=== PATIENT | male | born 1945 | race Caucasian/White ===

== ENCOUNTER 2025-02-18 00:16 | Inpatient (IN) ==
[2025-02-18] MEDS: ONDANSETRON INJ 2 MG/ML 2 ML VIAL IV STA (01:11)
[2025-02-18] MEDS: ACETAMINOPHEN 1,000 MG/100 ML VIAL IV STA (01:12)
[2025-02-18] MEDS: SODIUM CHLORIDE 0.9% 1,000 ML IV ONE (01:12)
[2025-02-18 01:27] LABS: Hematocrit (blood only) 41.4 % (42.0-52.0); Hemoglobin 13.6 g/dl (14.0-18.0); Immature Granulocytes # (auto) 0.03 K/uL (0.01-0.20); Immature Granulocytes % (auto) 0.3 %; Mean Corpuscular Hemoglobin 29.6 pg (25.0-34.0); Mean Corpuscular Volume 90.2 fL (80.0-100.0); Platelet Count 189 K/uL (130-400); RDW Standard Deviation 44.9 fL (36.4-46.3); Red Blood Count 4.59 M/uL (4.70-6.10); White Blood Count 10.99 K/ul (4.8-10.8)
[2025-02-18 01:41] LABS: Appearance Urine Cloudy (Clear); Glucose Urine UA Negative (Negative)
[2025-02-18 01:45] LABS: Alanine Aminotransferase 32.0 U/L (7-52); Albumin Globulin Ratio 1.3 (0.9-2); Albumin Level 4.2 gm/dl (3.4-5.0); Alkaline Phosphatase 63.0 U/L (34-104); Anion Gap 7.0 (3-11); Bilirubin,Total 0.6 mg/dl (0.2-1.0); Blood Urea Nitrogen 24.0 mg/dl (6-23); Calcium 10.2 mg/dl (8.6-10.3); Carbon Dioxide 30.0 mmol/L (21-32); Chloride 102.0 mmol/L (98-107); Creatinine Clr Calc Pharmacy 62.9 ml/min; Globulin 3.3 gm/dl (2.5-4.0); Glucose 105.0 mg/dl (70-99(Fasting)); Magnesium 2.0 mg/dl (1.7-2.4); Potassium 3.7 mmol/L (3.5-5.1); Sodium 139.0 mmol/L (136-145); Total Protein 7.5 gm/dl (6.0-8.3)
[2025-02-18 01:54] LABS: INR 1.0 (0.9-1.1); Partial Thromboplastin Time 26 Seconds (21-31); Prothrombin Time 10.4 Seconds (9.0-12.0)
--- NOTE | 2025-02-18 02:18 | XRay Report ---
EXAM: XR chest 1V not portable CLINICAL HISTORY: Sepsis TECHNIQUE: An X-ray image of the chest was obtained in the AP projection. COMPARISON: No prior studies are available for comparison. FINDINGS: Pulmonary Parenchyma: Bilateral basal haziness is noted. Otherwise, there is no evidence of consolidation, collapse, or focal opacities present. No pulmonary nodules are identified. There is no evidence of pleural effusion or pleural thickening. Heart and Mediastinum: The cardiothoracic ratio is average. No mediastinal widening or masses are seen. No hilar or mediastinal lymphadenopathy is identified. Bony Thorax: The bony thorax appears intact, without fractures or deformities. Soft Tissues: The soft tissues overlying the chest wall are unremarkable. IMPRESSION: Bilateral basal haziness is present. This is likely due to atelectasis. Infection or an inflammatory process cannot be entirely excluded. Clinical correlation is needed. Electronically signed by Ozzy Wilkerson 02-18-2025 02:18 AM
[2025-02-18] MEDS: cefTRIAXone SODIUM 1,000 MG/50 ML BAG IV STA (02:55)
[2025-02-18] MEDS: SODIUM CHLORIDE 0.9% 500 ML IV SCH (02:55)
[2025-02-18 03:31] LABS: Chlamydia pneumoniae PCR Not Detected (NotDetected); Coronavirus 229E PCR Not Detected (NotDetected); Coronavirus CoV-2 (COVID19)PCR Not Detected (NotDetected); Coronavirus HKU1 PCR Not Detected (NotDetected); Coronavirus NL63 PCR Not Detected (NotDetected); Coronavirus OC43PCR Not Detected (NotDetected); Human Metapneumovirus PCR Not Detected (NotDetected); Parainfluenza Virus 1 PCR Not Detected (NotDetected); Parainfluenza Virus 2 PCR Not Detected (NotDetected); Parainfluenza Virus 3 PCR Not Detected (NotDetected); Parainfluenza Virus 4 PCR Not Detected (NotDetected); Respiratory Syncytial VirusPCR Not Detected (NotDetected); Rhinovirus/Enterovirus PCR Not Detected (NotDetected)
[2025-02-18] MEDS: OPTIRAY 320 100ml IV ONE (03:41)
[2025-02-18] MEDS: AZITHROMYCIN 500 MG/255 ML BAG IV ONE (04:17)
--- NOTE | 2025-02-18 04:18 | CT Scan Report ---
EXAM: CT chest diagnostic w con CLINICAL HISTORY: eval for penumonia TECHNIQUE: Contiguous axial images were obtained from the neck base through the upper abdomen following intravenous administration of contrast material. If IV contrast material had not been administered, the likelihood of detecting abnormalities relevant to the patient's condition would have been substantially decreased. In addition, sagittal and coronal reconstructions were performed. The CT scan was performed according to ALARA (as low as reasonably achievable) principles. COMPARISON: None. FINDINGS: A few atelectatic bands are noted involving the bilateral lung bases. The lungs are clear, with no focal areas of consolidation. No pulmonary nodules are seen. The central airways are patent. There are no pleural effusions. No pneumothorax is seen. No axillary, hilar, or mediastinal adenopathy is identified. The visualized thyroid is unremarkable. The heart, aorta, and pulmonary arteries are of normal size and configuration. No pericardial effusion is identified. Imaged portions of the upper abdomen show cholelithiasis. No aggressive appearing osseous lesions are identified. IMPRESSION: A few atelectatic bands are noted involving the bilateral lung bases. No obvious consolidation is seen. Electronically signed by Gerardo Abdul 02-18-2025 04:18 AM
--- NOTE | 2025-02-18 04:37 | History & Physical Report ---
Date of Service February 18, 2025 Assessment & Plan (1) Sepsis: Plan: Assessment and plan below following discussion of case with ED provider and reviewing patient history/pertinent normal/abnormal diagnostic test results. Sepsis secondary to complicated bronchitis COPD exacerbation secondary to above hypertension, slightly elevated secondary to illness hyperlipidemia,on statin Rx aortic root enlargement/ascending aortic aneurysm, patient follows with [facility] [place] cardiology chronic anemia, hemoglobin at baseline BPH, prostatic nodule status post recent biopsy, patient with painless hematuria ongoing tobacco abuse Admit to med/tele CS, azithromycin course Nebs RTC, steroid course Pulmonology consult if without improvement Nicotine patch as needed DVT prophylaxis. SCDs Re: Hematuria Full code Patient requesting updates providers. Ms. Josiah Harrington, contact #[phone]. Text document was generated using [employer] voice recognition software. It may contain grammatical or spelling errors. Kindly contact undersigned for clarification of any documentation item in question. History of Present Illness Chief Complaint: Fever, chills, cough Primary Care Provider: Guru French MD History obtained from patient, family, and records. Medical history significant for hypertension, hyperlipidemia, aortic root enlargement/ascending aortic aneurysm, COPD, chronic anemia (baseline hemoglobin 12-13), BPH, ongoing tobacco abuse. Patient had outpatient prostate biopsy for rising PSA and prostatic nodule few days ago by [facility] [place] urologist. Painless hematuria postprocedure which he was told to expect as per patient. Postop Cipro course completed. Patient not feeling well yesterday before he and went out for dinner. Junky cough symptoms with increased SOB and wheezing more than usual. No chest pain. Denies aspiration. Not sure about sick contacts. Patient felt sick to his stomach. No actual abdominal pain. Subsequent bilious emesis. Patient brought to ER for evaluation. Ceftriaxone and azithromycin administered at the ER for sepsis. Medical History as above Surgical History : Cataract surgery, urologic procedure, tonsillectomy/adenoidectomy, sinus surgery Family History : COPD Personal/Social history : 1/4 pack daily, occasional EtOH intake, retired company [employer] Allergies Allergy/AdvReac Type Severity Reaction Status Date / Time No Known Allergies Allergy Verified 02/18/25 01:37 Home Medications Medication Instructions Recorded Confirmed Type amlodipine 2.5 mg tablet 2.5 mg PO QAM 10/16/23 02/18/25 History ibuprofen 200 mg tablet 200 mg PO BID PRN Pain 10/16/23 02/18/25 History lisinopril 20 mg tablet 20 mg PO QAM 10/16/23 02/18/25 History metoprolol succinate 25 mg capsule 25 mg PO QAM 10/16/23 02/18/25 History sprinkle, ext. release 24 hr rosuvastatin 10 mg tablet 10 mg PO QAM 10/16/23 02/18/25 History sildenafil (pulm.hypertension) 20 20 mg PO UD PRN Sexual Activity 10/16/23 02/18/25 History mg tablet ciprofloxacin HCl 500 mg tablet 500 mg PO BID #6 tabs 01/19/25 02/18/25 Rx (Cipro) ferrous sulfate 325 mg (65 mg 325 mg PO DAILY 02/18/25 02/18/25 History iron) tablet Past Med/Surg History Problem List (Updated 02/18/25 @ 06:45 by Pardeep Pereira MD) Sepsis Elevated PSA Medical History Osteoarthritis Hyperlipidemia Hypertension AAA (abdominal aortic aneurysm) Hx of colonic polyps Surgical History History of cataract surgery S/P right knee arthroscopy H/O submucous nasal surgery History of colonoscopy History of tonsillectomy Family History Other No family history of adverse response to anesthesia Social History Smoking Status: Current some day smoker Tobacco Type: Cigarettes Cigarettes Per Day: advised npo > not every day use; Second Hand Exposure: No; Do You Dip or Chew Tobacco: No; Hx Alcohol Use: Yes Alcohol type: wine and hard liquor Hx Substance Use: No Preferred Language: Tamazight Communication Ability: Effective Oxygen Equipment Technician Required: No Beliefs That Will Affect Care: None Current Living Situation: Spouse Feels Safe at Home: Yes Assistive Devices: None and Hearing Aid - Bilateral Review of Systems Review of Systems: As per HPI, all other systems reviewed and negative Physical Exam Physical Exam: GENERAL: Slightly uncomfortable, minimal respiratory distress SKIN: Pallor, warm HEENT: Pale palpebral conjunctivae, no ptosis, dry buccal mucosa, nasal cannula in place NECK : Supple, no tenderness CHEST : Decreased breath sounds, occasional expiratory wheezes, no tenderness HEART : Tachycardic, no obvious murmurs ABDOMEN: Some distention, nontender EXTREMITIES : No LE swelling/tenderness, palpable pulses, no other conspicuous deformities noted NEUROLOGIC : Coherent, no facial asymmetry, no other gross focality Results & Data Results & Data Vital Signs (Past 12 Hours) Vital Signs Temp Pulse Pulse Resp BP BP Pulse Ox 02/18/25 04:20 39.0 C H 109 H 22 153/93 H 99 02/18/25 03:21 117 H 23 99 02/18/25 03:19 125/69 02/18/25 03:19 37.6 C H 118 H 26 H 125/69 98 02/18/25 03:18 117 H 33 H 02/18/25 03:12 127 H 34 H 02/18/25 03:00 126/76 02/18/25 02:54 119 H 22 98 02/18/25 02:30 162/97 H 02/18/25 02:30 109 H 33 H 99 02/18/25 02:16 39.3 C H 02/18/25 02:15 101 H 25 H 97 02/18/25 02:03 109 H 31 H 96 02/18/25 02:00 145/74 H 02/18/25 02:00 145/74 H 02/18/25 01:57 107 H 34 H 95 02/18/25 01:54 106 H 34 H 96 02/18/25 01:48 106 H 37 H 95 02/18/25 01:30 154/82 H 02/18/25 01:30 154/82 H 02/18/25 01:30 154/82 H 02/18/25 01:30 108 H 28 H 96 02/18/25 01:21 107 H 40 H 96 02/18/25 01:12 113 H 35 H 95 02/18/25 01:03 103 H 33 H 97 02/18/25 01:00 182/97 H 02/18/25 01:00 182/97 H 02/18/25 01:00 182/97 H 02/18/25 00:46 138/84 02/18/25 00:45 101 H 21 97 02/18/25 00:33 02/18/25 00:33 02/18/25 00:22 37.2 C 118 H 20 147/80 H 94 O2 Del Method O2 Flow Rate 02/18/25 04:20 Nasal Cannula 2 02/18/25 03:21 02/18/25 03:19 02/18/25 03:19 Nasal Cannula 2 02/18/25 03:18 02/18/25 03:12 02/18/25 03:00 02/18/25 02:54 02/18/25 02:30 02/18/25 02:30 02/18/25 02:16 02/18/25 02:15 Nasal Cannula 2 02/18/25 02:03 02/18/25 02:00 02/18/25 02:00 02/18/25 01:57 02/18/25 01:54 02/18/25 01:48 02/18/25 01:30 02/18/25 01:30 02/18/25 01:30 02/18/25 01:30 02/18/25 01:21 02/18/25 01:12 02/18/25 01:03 02/18/25 01:00 02/18/25 01:00 02/18/25 01:00 02/18/25 00:46 02/18/25 00:45 02/18/25 00:33 Room Air 02/18/25 00:33 Room Air 02/18/25 00:22 Room Air Laboratory Results Laboratory Results WBC 10.99 K/ul (4.8-10.8) H 02/18/25 00:40 RBC 4.59 M/uL (4.70-6.10) L 02/18/25 00:40 Hgb 13.6 g/dl (14.0-18.0) L 02/18/25 00:40 Hct 41.4 % (42.0-52.0) L 02/18/25 00:40 MCV 90.2 fL (80.0-100.0) 02/18/25 00:40 MCH 29.6 pg (25.0-34.0) 02/18/25 00:40 MCHC 32.9 g/dL (32.0-36.0) 02/18/25 00:40 RDW Std Deviation 44.9 fL (36.4-46.3) 02/18/25 00:40 RDW Coeff of Yajaira 13.7 % (11.5-14.5) 02/18/25 00:40 Plt Count 189 K/uL (130-400) 02/18/25 00:40 MPV 10.3 fL (9.4-12.4) 02/18/25 00:40 Immature Gran % (Auto) 0.3 % 02/18/25 00:40 Neut % (Auto) 89.6 % 02/18/25 00:40 Lymph % (Auto) 4.3 % 02/18/25 00:40 [place]val % (Auto) 5.0 % 02/18/25 00:40 Eos % (Auto) 0.5 % 02/18/25 00:40 Baso % (Auto) 0.3 % 02/18/25 00:40 Neut # (Auto) 9.86 K/uL (1.40-6.50) H 02/18/25 00:40 Lymph # (Auto) 0.47 K/uL (1.20-3.40) L 02/18/25 00:40 [place]val # (Auto) 0.55 K/uL (0.11-0.59) 02/18/25 00:40 Eos # (Auto) 0.05 K/uL (0.00-0.50) 02/18/25 00:40 Baso # (Auto) 0.03 K/uL (0.00-0.20) 02/18/25 00:40 Immature Gran # (Auto) 0.03 K/uL (0.01-0.20) 02/18/25 00:40 PT 10.4 Seconds (9.0-12.0) 02/18/25 00:40 INR 1.0 (0.9-1.1) 02/18/25 00:40 APTT 26 Seconds (21-31) 02/18/25 00:40 PTT Ratio 1.0 02/18/25 00:40 Sodium 139 mmol/L (136-145) 02/18/25 00:40 Potassium 3.7 mmol/L (3.5-5.1) 02/18/25 00:40 Chloride 102 mmol/L (98-107) 02/18/25 00:40 Carbon Dioxide 30 mmol/L (21-32) 02/18/25 00:40 Anion Gap 7 (3-11) 02/18/25 00:40 BUN 24 mg/dl (6-23) H 02/18/25 00:40 Creatinine 1.08 mg/dl (0.6-1.4) 02/18/25 00:40 Est Cr Clr Drug Dosing 62.9 ml/min 02/18/25 00:40 eGFR 70.68 02/18/25 00:40 BUN/Creatinine Ratio 22.2 (10-20) H 02/18/25 00:40 Glucose 105 mg/dl (70-99(Fasting)) H 02/18/25 00:40 Lactate 1.3 mmol/L (0.4-2.0) 02/18/25 00:40 Calcium 10.2 mg/dl (8.6-10.3) 02/18/25 00:40 Magnesium 2.0 mg/dl (1.7-2.4) 02/18/25 00:40 Total Bilirubin 0.6 mg/dl (0.2-1.0) 02/18/25 00:40 AST 20 U/L (13-39) 02/18/25 00:40 ALT 32 U/L (7-52) 02/18/25 00:40 Alkaline Phosphatase 63 U/L (34-104) 02/18/25 00:40 Troponin I High Sens 5.3 pg/ml (0-20) 02/18/25 00:40 Total Protein 7.5 gm/dl (6.0-8.3) 02/18/25 00:40 Albumin 4.2 gm/dl (3.4-5.0) 02/18/25 00:40 Globulin 3.3 gm/dl (2.5-4.0) 02/18/25 00:40 Albumin/Globulin Ratio 1.3 (0.9-2) 02/18/25 00:40 Procalcitonin 0.16 ng/ml (0-0.5) 02/18/25 00:40 Urine Color Yellow 02/18/25 01:08 Urine Appearance Cloudy (Clear) A 02/18/25 01:08 Urine pH 8.5 (4.5-7.5) H 02/18/25 01:08 Ur Specific [place] 1.020 (1.000-1.030) 02/18/25 01:08 Urine Protein Negative (Negative) 02/18/25 01:08 Urine Glucose (UA) Negative (Negative) 02/18/25 01:08 Urine Ketones Negative (Negative) 02/18/25 01:08 Urine Blood 3+ (Negative) H 02/18/25 01:08 Urine Nitrite Negative (Negative) 02/18/25 01:08 Urine Bilirubin Negative (Negative) 02/18/25 01:08 Urine Urobilinogen Negative (Negative) 02/18/25 01:08 Ur Leukocyte Esterase Negative (Negative) 02/18/25 01:08 Urine RBC >20 /hpf (0-2) H 02/18/25 01:08 Urine WBC 11-20 /hpf (0-5) H 02/18/25 01:08 Ur Epithelial Cells 6-10 /hpf (0-2) H 02/18/25 01:08 Urine Bacteria None Seen (None Seen) 02/18/25 01:08 Urine Comment 02/18/25 01:08 Adenovirus (PCR) Not Detected (NotDetected) 02/18/25 00:45 B. pertussis DNA (PCR) Not Detected (NotDetected) 02/18/25 00:45 B.parapertussis DNA PCR Not Detected (NotDetected) 02/18/25 00:45 C. pneumoniae DNA (PCR) Not Detected (NotDetected) 02/18/25 00:45 Coronavirus OC43 (PCR) Not Detected (NotDetected) 02/18/25 00:45 Coronavirus HKU1 (PCR) Not Detected (NotDetected) 02/18/25 00:45 Coronavirus 229E (PCR) Not Detected (NotDetected) 02/18/25 00:45 SARS-CoV-2 (PCR) Not Detected (NotDetected) 02/18/25 00:45 Coronavirus NL63 (PCR) Not Detected (NotDetected) 02/18/25 00:45 Human Metapneumovir PCR Not Detected (NotDetected) 02/18/25 00:45 Influenza Type A (PCR) Not Detected (NotDetected) 02/18/25 00:45 Influenza Type B (PCR) Not Detected (NotDetected) 02/18/25 00:45 M. pneumoniae (PCR) Not Detected (NotDetected) 02/18/25 00:45 Parainfluenza 1 (PCR) Not Detected (NotDetected) 02/18/25 00:45 Parainfluenza 2 (PCR) Not Detected (NotDetected) 02/18/25 00:45 Parainfluenza 3 (PCR) Not Detected (NotDetected) 02/18/25 00:45 Parainfluenza 4 (PCR) Not Detected (NotDetected) 02/18/25 00:45 RSV (PCR) Not Detected (NotDetected) 02/18/25 00:45 Entero/Rhino (PCR) Not Detected (NotDetected) 02/18/25 00:45 Impressions Chest X-Ray 02/18/25 00:33 EXAM: XR chest 1V not portable CLINICAL HISTORY: Sepsis TECHNIQUE: An X-ray image of the chest was obtained in the AP projection. COMPARISON: No prior studies are available for comparison. FINDINGS: Pulmonary Parenchyma: Bilateral basal haziness is noted. Otherwise, there is no evidence of consolidation, collapse, or focal opacities present. No pulmonary nodules are identified. There is no evidence of pleural effusion or pleural thickening. Heart and Mediastinum: The cardiothoracic ratio is average. No mediastinal widening or masses are seen. No hilar or mediastinal lymphadenopathy is identified. Bony Thorax: The bony thorax appears intact, without fractures or deformities. Soft Tissues: The soft tissues overlying the chest wall are unremarkable. IMPRESSION: Bilateral basal haziness is present. This is likely due to atelectasis. Infection or an inflammatory process cannot be entirely excluded. Clinical correlation is needed. Electronically signed by Ozzy Wilkerson 02-18-2025 02:[address] 02/18/25 02:47 EXAM: CT chest diagnostic w con CLINICAL HISTORY: eval for penumonia TECHNIQUE: Contiguous axial images were obtained from the neck base through the upper abdomen following intravenous administration of contrast material. If IV contrast material had not been administered, the likelihood of detecting abnormalities relevant to the patient's condition would have been substantially decreased. In addition, sagittal and coronal reconstructions were performed. The CT scan was performed according to ALARA (as low as reasonably achievable) principles. COMPARISON: None. FINDINGS: A few atelectatic bands are noted involving the bilateral lung bases. The lungs are clear, with no focal areas of consolidation. No pulmonary nodules are seen. The central airways are patent. There are no pleural effusions. No pneumothorax is seen. No axillary, hilar, or mediastinal adenopathy is identified. The visualized thyroid is unremarkable. The heart, aorta, and pulmonary arteries are of normal size and configuration. No pericardial effusion is identified. Imaged portions of the upper abdomen show cholelithiasis. No aggressive appearing osseous lesions are identified. IMPRESSION: A few atelectatic bands are noted involving the bilateral lung bases. No obvious consolidation is seen. Electronically signed by Gerardo Abdul 02-18-2025 04:18 AM Diagnostic Findings EKG as per my interpretation :Rate 105, sinus tachycardia, normal axis, inferior infarct, T wave abnormalities inferior leads
[2025-02-18] MEDS: KETOROLAC TROMETHAMINE 15 MG/ML VIAL IV STA (05:07)
[2025-02-18] MEDS: METOPROLOL SUCC 25MG EXT REL TAB PO STA (05:07)
[2025-02-18] MEDS ORDERED: PROMETHAZINE 6.25 MG/50.25 ML BAG IV PRN (05:18)
[2025-02-18] MEDS: NSS + 20MEQ KCL 20 MEQ/1,000 ML BAG IV STA (05:25)
[2025-02-18] MEDS: IPRATROPIUM BROMIDE NEB SOLN 0.02% 0.5MG/2.5ML VIAL INH STA (05:25)
[2025-02-18] MEDS: LEVALBUTEROL 1.25 MG/3 ML NEB NEB STA (05:25)
--- NOTE | 2025-02-18 05:28 | Emergency Department Note ---
Impression & Plan SIRS (systemic inflammatory response syndrome), Bronchitis, Chronic obstructive pulmonary disease with (acute) exacerbation Admit to the [facility] ED Provider Note NAME: PIERCE TINSLEY AGE: 79 SEX: Male INFORMANT: Patient ED PROVIDER(S): Virginia Rodriguez DO CHIEF COMPLAINT: Fever/chills; nausea and vomiting PLAN: Disposition: Admit to the [facility] MEDICAL DECISION MAKING: This is a 79-year-old male patient who presents to the emergency department complaining of fever, chills, nausea/vomiting. Patient underwent a prostate biopsy a couple of days ago but felt well following the procedure. Yesterday, the patient developed an increased productive cough, fever, chills and increased bloody urine. Tonight, the patient spiked a fever. A septic protocol was performed. Laboratory studies revealed no significant elevated white blood cell count. H&H were stable. Coagulation studies were normal. Renal function was normal. Glucose was 105. Troponin was normal. Lactate and procalcitonin were both normal. Urinalysis was positive for blood and white blood cells but no signs of infection. Chest x-ray had bilateral lower lobe haziness so he went for CT scan of the chest to rule out pneumonia. This was negative for pneumonia. Patient was treated with IV acetaminophen for his fever and rigors. He was prophylaxed with IV Rocephin for his urine. I added IV Zithromax for his lungs. Patient does have a history of very mild COPD according to the patient's . This could also represent an acute exacerbation of COPD with bronchitis. I remain concerned about the patient's high fever and rigors. [facility] care. Care/management discussed with: inclusion manager and [facility] Triage Nursing notes: reviewed and agree with them. Vital Signs: reviewed and remarkable for tachycardia and fever Additional History obtained from: Patient's who is at the bedside Chronic Medical/Social Conditions affecting care: COPD Differential Diagnosis: Prostatitis, UTI, sepsis, pneumonia, bronchitis, COPD exacerbation Diagnostics, independently interpreted by me: ECG: Sinus tachycardia at a rate of [address] segment elevation or signs of ischemia. There is no ectopy. Cardiac Monitoring: Sinus tachycardia at a rate of 112 Imaging studies: portable chest x-ray: Bibasilar haziness as per [facility] CT scan of the chest: as per [facility] HPI: 79 year old Male arrives for evaluation of nausea/vomiting and fever and chills. Patient presents to the emergency department complaining of fever, chills, nausea and vomiting. Patient underwent a prostate biopsy a couple of days ago but felt fine following the procedure. Yesterday the patient developed an increased productive cough, fever and chills and his urine became more bloody. Tonight he spiked a fever and developed shaking chills.. PAST MEDICAL HISTORY: See Below, PAST SURGICAL HISTORY: See Below, SOCIAL HISTORY: See Below, HOME MEDICATIONS: See list ALLERGIES: None VITALS: See Below PHYSICAL EXAMINATION: HEENT: Head - normocephalic and atraumatic. Pupils are equal, round, and reactive to light. Extraocular eye muscles are intact, and sclera are anicteric. Nose - moist nasal mucosa without discharge. Mouth - moist buccal mucosa. Oropharynx is nonerythematous and there is no tonsillar exudate or edema noted. Neck: Supple; no cervical lymphadenopathy Heart: Tachycardic rate and regular rhythm. There is a normal S1 and S2 with no murmurs, clicks, or gallops appreciated. Lungs: Clear to auscultation bilaterally with no wheezes, rales, or rhonchi. Abdomen: Soft, completely nontender, nondistended, with good bowel sounds. There are no palpable pulsatile masses or hepatosplenomegaly. There is no guarding, rigidity, or rebound noted. Extremities: No evidence of cyanosis, clubbing, or edema. There are easily palpable peripheral pulses. Skin: warm and dry with good turgor and no rashes. Emergency Department treatment: youth nutritional monitor, IV normal saline bolus, IV acetaminophen, IV Zofran, IV Rocephin, IV Zithromax Emergency Department course: The patient was evaluated in room B-10. A complete history and physical was performed. IV lock was initiated and labs were drawn as above. Urine specimen was obtained. Septic protocol was performed. The patient was bolused with IV normal saline solution and given a dose of IV acetaminophen. He was given a dose of IV Zofran for his nausea. Order was placed for continuous cardiac monitoring. The patient was in a sinus tachycardia at a rate of 112. Twelve-lead EKG was obtained as described above. Portable chest x-ray was obtained. Patient was given a dose of IV Rocephin. He went for CT scan of the chest. He was given a dose of IV Zithromax. He was placed on IV normal saline drip. He was able to drink clear liquids that he was no longer nauseated. I discussed the case with the [facility] Hospitalist and they will evaluate for further inpatient care. Past Med/Surg History Problem List (Updated 02/18/25 @ 14:31 by Virginia Rodriguez DO) Chronic obstructive pulmonary disease with (acute) exacerbation (Acute) Bronchitis (Acute) SIRS (systemic inflammatory response syndrome) (Acute) Sepsis Elevated PSA Medical History Osteoarthritis Hyperlipidemia Hypertension AAA (abdominal aortic aneurysm) Hx of colonic polyps Surgical History History of cataract surgery S/P right knee arthroscopy H/O submucous nasal surgery History of colonoscopy History of tonsillectomy Family History Other No family history of adverse response to anesthesia Social History Smoking Status: Current every day smoker Tobacco Type: Cigarettes Cigarettes Per Day: 5; Second Hand Exposure: No; Do You Dip or Chew Tobacco: No; Tobacco Cessation Education Requested by Patient: No Hx Alcohol Use: Yes Alcohol type: wine and hard liquor Hx Substance Use: No Preferred Language: Croatian Communication Ability: Effective 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 Assembler Required: No Beliefs That Will Affect Care: None Current Living Situation: Spouse Other Information That Helps Us Care for You: No Feels Safe at Home: Yes Safety Concerns: Feels Safe At This Time Assistive Devices: None Allergies Allergies Allergy/AdvReac Type Severity Reaction Status Date / Time No Known Allergies Allergy Verified 02/18/25 01:37 Home Meds Home Medications Medication Instructions Recorded Confirmed amlodipine 2.5 mg tablet 2.5 mg PO QAM 10/16/23 02/18/25 ibuprofen 200 mg tablet 200 mg PO BID PRN Pain 10/16/23 02/18/25 lisinopril 20 mg tablet 20 mg PO QAM 10/16/23 02/18/25 metoprolol succinate 25 mg capsule 25 mg PO QAM 10/16/23 02/18/25 sprinkle, ext. release 24 hr rosuvastatin 10 mg tablet 10 mg PO QAM 10/16/23 02/18/25 sildenafil (pulm.hypertension) 20 20 mg PO UD PRN Sexual Activity 10/16/23 02/18/25 mg tablet ferrous sulfate 325 mg (65 mg 325 mg PO DAILY 02/18/25 02/18/25 iron) tablet Previous Rx's Medication Instructions Recorded ciprofloxacin HCl 500 mg tablet 500 mg PO BID #6 tabs 01/19/25 (Cipro) Results & Data (ED) Vital Signs Vital Signs - 24 hr 02/18/25 00:22 02/18/25 00:33 02/18/25 00:33 Temperature 37.2 C Temperature Source Oral Pulse Rate 118 H Pulse Rate [Apical] Pulse Rate from SpO2 Sensor Pulse Rhythm [Apical] Respiratory Rate 20 Respiratory Effort / Characteristics Non-Labored Spontaneous Respiratory Depth Normal Respiratory Pattern Regular Blood Pressure 147/80 H Blood Pressure [Right Arm] Blood Pressure Mean 102 Blood Pressure Mean [Right Arm] Blood Pressure Position Sitting Blood Pressure Position [Right Arm] Pulse Oximetry 94 Oxygen Delivery Method Room Air Room Air Room Air Oxygen Flow Rate Sepsis Recent Fever Within 48 Hours Yes Sepsis New/Unexplained Change in Mental Status N/A Sepsis Action Taken by Nursing No Action Required 02/18/25 00:33 02/18/25 00:44 02/18/25 00:45 Temperature Temperature Source Pulse Rate 100 H 101 H Pulse Rate [Apical] Pulse Rate from SpO2 Sensor Pulse Rhythm [Apical] Respiratory Rate 21 Respiratory Effort / Characteristics Non-Labored Spontaneous Respiratory Depth Normal Respiratory Pattern Blood Pressure Blood Pressure [Right Arm] Blood Pressure Mean Blood Pressure Mean [Right Arm] Blood Pressure Position Blood Pressure Position [Right Arm] Pulse Oximetry 97 Oxygen Delivery Method Oxygen Flow Rate Sepsis Recent Fever Within 48 Hours Sepsis New/Unexplained Change in Mental Status Sepsis Action Taken by Nursing 02/18/25 00:46 02/18/25 01:00 02/18/25 01:00 Temperature Temperature Source Pulse Rate Pulse Rate [Apical] Pulse Rate from SpO2 Sensor Pulse Rhythm [Apical] Respiratory Rate Respiratory Effort / Characteristics Respiratory Depth Respiratory Pattern Blood Pressure 138/84 182/97 H 182/97 H Blood Pressure [Right Arm] Blood Pressure Mean 107 115 115 Blood Pressure Mean [Right Arm] Blood Pressure Position Blood Pressure Position [Right Arm] Pulse Oximetry Oxygen Delivery Method Oxygen Flow Rate Sepsis Recent Fever Within 48 Hours Sepsis New/Unexplained Change in Mental Status Sepsis Action Taken by Nursing 02/18/25 01:00 02/18/25 01:03 02/18/25 01:12 Temperature Temperature Source Pulse Rate 103 H 113 H Pulse Rate [Apical] Pulse Rate from SpO2 Sensor 104 H 112 H Pulse Rhythm [Apical] Respiratory Rate 33 H 35 H Respiratory Effort / Characteristics Respiratory Depth Respiratory Pattern Blood Pressure 182/97 H Blood Pressure [Right Arm] Blood Pressure Mean 115 Blood Pressure Mean [Right Arm] Blood Pressure Position Blood Pressure Position [Right Arm] Pulse Oximetry 97 95 Oxygen Delivery Method Oxygen Flow Rate Sepsis Recent Fever Within 48 Hours Sepsis New/Unexplained Change in Mental Status Sepsis Action Taken by Nursing 02/18/25 01:21 02/18/25 01:30 02/18/25 01:30 Temperature Temperature Source Pulse Rate 107 H 108 H Pulse Rate [Apical] Pulse Rate from SpO2 Sensor 107 H 108 H Pulse Rhythm [Apical] Respiratory Rate 40 H 28 H Respiratory Effort / Characteristics Respiratory Depth Respiratory Pattern Blood Pressure 154/82 H Blood Pressure [Right Arm] Blood Pressure Mean 106 Blood Pressure Mean [Right Arm] Blood Pressure Position Blood Pressure Position [Right Arm] Pulse Oximetry 96 96 Oxygen Delivery Method Oxygen Flow Rate Sepsis Recent Fever Within 48 Hours Sepsis New/Unexplained Change in Mental Status Sepsis Action Taken by Nursing 02/18/25 01:30 02/18/25 01:30 02/18/25 01:48 Temperature Temperature Source Pulse Rate 106 H Pulse Rate [Apical] Pulse Rate from SpO2 Sensor 106 H Pulse Rhythm [Apical] Respiratory Rate 37 H Respiratory Effort / Characteristics Respiratory Depth Respiratory Pattern Blood Pressure 154/82 H 154/82 H Blood Pressure [Right Arm] Blood Pressure Mean 106 106 Blood Pressure Mean [Right Arm] Blood Pressure Position Blood Pressure Position [Right Arm] Pulse Oximetry 95 Oxygen Delivery Method Oxygen Flow Rate Sepsis Recent Fever Within 48 Hours Sepsis New/Unexplained Change in Mental Status Sepsis Action Taken by Nursing 02/18/25 01:54 02/18/25 01:57 02/18/25 02:00 Temperature Temperature Source Pulse Rate 106 H 107 H Pulse Rate [Apical] Pulse Rate from SpO2 Sensor 107 H 107 H Pulse Rhythm [Apical] Respiratory Rate 34 H 34 H Respiratory Effort / Characteristics Respiratory Depth Respiratory Pattern Blood Pressure 145/74 H Blood Pressure [Right Arm] Blood Pressure Mean 91 Blood Pressure Mean [Right Arm] Blood Pressure Position Blood Pressure Position [Right Arm] Pulse Oximetry 96 95 Oxygen Delivery Method Oxygen Flow Rate Sepsis Recent Fever Within 48 Hours Sepsis New/Unexplained Change in Mental Status Sepsis Action Taken by Nursing 02/18/25 02:00 02/18/25 02:03 02/18/25 02:15 Temperature Temperature Source Pulse Rate 109 H 101 H Pulse Rate [Apical] Pulse Rate from SpO2 Sensor 110 H 101 H Pulse Rhythm [Apical] Respiratory Rate 31 H 25 H Respiratory Effort / Characteristics Respiratory Depth Respiratory Pattern Blood Pressure 145/74 H Blood Pressure [Right Arm] Blood Pressure Mean 91 Blood Pressure Mean [Right Arm] Blood Pressure Position Blood Pressure Position [Right Arm] Pulse Oximetry 96 97 Oxygen Delivery Method Nasal Cannula Oxygen Flow Rate 2 Sepsis Recent Fever Within 48 Hours Sepsis New/Unexplained Change in Mental Status Sepsis Action Taken by Nursing 02/18/25 02:16 02/18/25 02:30 02/18/25 02:30 Temperature 39.3 C H Temperature Source Oral Pulse Rate 109 H Pulse Rate [Apical] Pulse Rate from SpO2 Sensor 108 H Pulse Rhythm [Apical] Respiratory Rate 33 H Respiratory Effort / Characteristics Respiratory Depth Respiratory Pattern Blood Pressure 162/97 H Blood Pressure [Right Arm] Blood Pressure Mean 113 Blood Pressure Mean [Right Arm] Blood Pressure Position Blood Pressure Position [Right Arm] Pulse Oximetry 99 Oxygen Delivery Method Oxygen Flow Rate Sepsis Recent Fever Within 48 Hours Sepsis New/Unexplained Change in Mental Status Sepsis Action Taken by Nursing 02/18/25 02:54 02/18/25 03:00 02/18/25 03:12 Temperature Temperature Source Pulse Rate 119 H 127 H Pulse Rate [Apical] Pulse Rate from SpO2 Sensor 119 H Pulse Rhythm [Apical] Respiratory Rate 22 34 H Respiratory Effort / Characteristics Respiratory Depth Respiratory Pattern Blood Pressure 126/76 Blood Pressure [Right Arm] Blood Pressure Mean 83 Blood Pressure Mean [Right Arm] Blood Pressure Position Blood Pressure Position [Right Arm] Pulse Oximetry 98 Oxygen Delivery Method Oxygen Flow Rate Sepsis Recent Fever Within 48 Hours Sepsis New/Unexplained Change in Mental Status Sepsis Action Taken by Nursing 02/18/25 03:18 02/18/25 03:19 02/18/25 03:19 Temperature 37.6 C H Temperature Source Oral Pulse Rate 117 H Pulse Rate [Apical] 118 H Pulse Rate from SpO2 Sensor Pulse Rhythm [Apical] Regular Respiratory Rate 33 H 26 H Respiratory Effort / Characteristics Non-Labored Spontaneous Respiratory Depth Normal Respiratory Pattern Regular Blood Pressure 125/69 Blood Pressure [Right Arm] 125/69 Blood Pressure Mean 97 Blood Pressure Mean [Right Arm] 87 Blood Pressure Position Blood Pressure Position [Right Arm] Semi-fowlers Pulse Oximetry 98 Oxygen Delivery Method Nasal Cannula Oxygen Flow Rate 2 Sepsis Recent Fever Within 48 Hours Sepsis New/Unexplained Change in Mental Status Sepsis Action Taken by Nursing 02/18/25 03:21 02/18/25 04:20 Temperature 39.0 C H Temperature Source Oral Pulse Rate 117 H Pulse Rate [Apical] 109 H Pulse Rate from SpO2 Sensor 117 H Pulse Rhythm [Apical] Regular Respiratory Rate 23 22 Respiratory Effort / Characteristics Non-Labored Spontaneous Respiratory Depth Normal Respiratory Pattern Regular Blood Pressure Blood Pressure [Right Arm] 153/93 H Blood Pressure Mean Blood Pressure Mean [Right Arm] 113 Blood Pressure Position Blood Pressure Position [Right Arm] Semi-fowlers Pulse Oximetry 99 99 Oxygen Delivery Method Nasal Cannula Oxygen Flow Rate 2 Sepsis Recent Fever Within 48 Hours Sepsis New/Unexplained Change in Mental Status Sepsis Action Taken by Nursing Laboratory Data 02/18/25 00:40 02/18/25 00:40 Lab Results 02/18/25 02/18/25 02/18/25 Range/Units 00:40 00:45 01:08 WBC 10.99 H (4.8-10.8) K/ul RBC 4.59 L (4.70-6.10) M/uL Hgb 13.6 L (14.0-18.0) g/dl Hct 41.4 L (42.0-52.0) % MCV 90.2 (80.0-100.0) fL MCH 29.6 (25.0-34.0) pg MCHC 32.9 (32.0-36.0) g/dL RDW Std Deviation 44.9 (36.4-46.3) fL RDW Coeff of Yajaira 13.7 (11.5-14.5) % Plt Count 189 (130-400) K/uL MPV 10.3 (9.4-12.4) fL Immature Gran % (Auto) 0.3 % Neut % (Auto) 89.6 % Lymph % (Auto) 4.3 % [place] % (Auto) 5.0 % Eos % (Auto) 0.5 % Baso % (Auto) 0.3 % Neut # (Auto) 9.86 H (1.40-6.50) K/uL Lymph # (Auto) 0.47 L (1.20-3.40) K/uL [place] # (Auto) 0.55 (0.11-0.59) K/uL Eos # (Auto) 0.05 (0.00-0.50) K/uL Baso # (Auto) 0.03 (0.00-0.20) K/uL Immature Gran # (Auto) 0.03 (0.01-0.20) K/uL PT 10.4 (9.0-12.0) Seconds INR 1.0 (0.9-1.1) APTT 26 (21-31) Seconds PTT Ratio 1.0 Sodium 139 (136-145) mmol/L Potassium 3.7 (3.5-5.1) mmol/L Chloride 102 (98-107) mmol/L Carbon Dioxide 30 (21-32) mmol/L Anion Gap 7 (3-11) BUN 24 H (6-23) mg/dl Creatinine 1.08 (0.6-1.4) mg/dl Est Cr Clr Drug Dosing 62.9 ml/min eGFR 70.68 BUN/Creatinine Ratio 22.2 H (10-20) Glucose 105 H (70-99(Fasting)) mg/dl Lactate 1.3 (0.4-2.0) mmol/L Calcium 10.2 (8.6-10.3) mg/dl Magnesium 2.0 (1.7-2.4) mg/dl Total Bilirubin 0.6 (0.2-1.0) mg/dl AST 20 (13-39) U/L ALT 32 (7-52) U/L Alkaline Phosphatase 63 (34-104) U/L Troponin I High Sens 5.3 (0-20) pg/ml Total Protein 7.5 (6.0-8.3) gm/dl Albumin 4.2 (3.4-5.0) gm/dl Globulin 3.3 (2.5-4.0) gm/dl Albumin/Globulin Ratio 1.3 (0.9-2) Procalcitonin 0.16 (0-0.5) ng/ml Urine Color Yellow Urine Appearance Cloudy A (Clear) Urine pH 8.5 H (4.5-7.5) Ur Specific [place] 1.020 (1.000-1.030) Urine Protein Negative (Negative) Urine Glucose (UA) Negative (Negative) Urine Ketones Negative (Negative) Urine Blood 3+ H (Negative) Urine Nitrite Negative (Negative) Urine Bilirubin Negative (Negative) Urine Urobilinogen Negative (Negative) Ur Leukocyte Esterase Negative (Negative) Urine RBC >20 H (0-2) /hpf Urine WBC 11-20 H (0-5) /hpf Ur Epithelial Cells 6-10 H (0-2) /hpf Urine Bacteria None Seen (None Seen) Urine Comment Adenovirus (PCR) Not Detected (NotDetected) B. pertussis DNA (PCR) Not Detected (NotDetected) B.parapertussis DNA PCR Not Detected (NotDetected) C. pneumoniae DNA (PCR) Not Detected (NotDetected) Coronavirus OC43 (PCR) Not Detected (NotDetected) Coronavirus HKU1 (PCR) Not Detected (NotDetected) Coronavirus 229E (PCR) Not Detected (NotDetected) SARS-CoV-2 (PCR) Not Detected (NotDetected) Coronavirus NL63 (PCR) Not Detected (NotDetected) Human Metapneumovir PCR Not Detected (NotDetected) Influenza Type A (PCR) Not Detected (NotDetected) Influenza Type B (PCR) Not Detected (NotDetected) M. pneumoniae (PCR) Not Detected (NotDetected) Parainfluenza 1 (PCR) Not Detected (NotDetected) Parainfluenza 2 (PCR) Not Detected (NotDetected) Parainfluenza 3 (PCR) Not Detected (NotDetected) Parainfluenza 4 (PCR) Not Detected (NotDetected) RSV (PCR) Not Detected (NotDetected) Entero/Rhino (PCR) Not Detected (NotDetected) Administered Medications Amlodipine Besylate (Amlodipine Besylate 5 Mg Tab) 2.5 mg PO QAM [facility] Stop: 03/20/25 08:59 Last Admin: 02/18/25 10:59 Dose: Not Given Documented By: mindy Ferrous Sulfate (Ferrous Sulfate 325 Mg Tab) 325 mg PO DAILY [facility] Stop: 03/20/25 08:59 Last Admin: 02/18/25 11:02 Dose: 325 mg Documented By: mindy Potassium Chloride/Sodium Chloride (Normal Saline W/20 Meq Kcl) 20 meq in 1,000 mls @ 75 mls/hr IV .[id number] STA Stop: 02/18/25 17:53 Last Admin: 02/18/25 05:25 Dose: 75 mls/hr Documented By: DELFINA Ipratropium [place] (Ipratropium [place] Neb Soln 0.02% 0.5mg/2.5ml Vial) 0.5 mg INH QIDR JESSA Stop: 03/20/25 10:59 Last Admin: 02/18/25 10:50 Dose: 0.5 mg Documented By: Admin: 02/18/25 06:56 Dose: 0.5 mg Documented By: RADHA Levalbuterol HCl (Levalbuterol 1.25 Mg/3 Ml Neb) 1.25 mg NEB QIDR JESSA Stop: 03/20/25 10:59 Last Admin: 02/18/25 10:49 Dose: 1.25 mg Documented By: Admin: 02/18/25 06:56 Dose: 1.25 mg Documented By: RADHA Lisinopril (Lisinopril 20 Mg Tab) [facility] [place] Stop: 03/20/25 08:59 Last Admin: 02/18/25 10:59 Dose: Not Given Documented By: mindy Metoprolol Succinate (Metoprolol Succ 25mg Ext Rel Tab) 25 [facility] [place] Stop: 03/20/25 08:59 Last Admin: 02/18/25 11:02 Dose: 25 mg Documented By: mindy Rosuvastatin Calcium (Rosuvastatin Calcium 10 Mg Tab) 10 [facility] [place] Stop: 03/20/25 08:59 Last Admin: 02/18/25 11:02 Dose: 10 mg Documented By: mindy Discontinued Medications Acetaminophen (Ofirmev) 1,000 mg in 100 mls @ 400 mls/hr IV NOW STA Stop: 02/18/25 01:19 Last Infusion: 02/18/25 01:27 Dose: Infused Documented By: Admin: 02/18/25 01:12 Dose: 400 mls/hr Documented By: LEONOR Sodium Chloride (Nss) 1,000 mls @ 999 mls/hr IV .Q1H1M ONE Stop: 02/18/25 02:05 Last Infusion: 02/18/25 02:13 Dose: Infused Documented By: Admin: 02/18/25 01:12 Dose: 999 mls/hr Documented By: LEONOR Ceftriaxone Sodium (Rocephin) 1,000 mg in 50 mls @ 100 mls/hr IV NOW STA Stop: 02/18/25 03:06 Last Infusion: 02/18/25 03:25 Dose: Infused Documented By: Admin: 02/18/25 02:55 Dose: 100 mls/hr Documented By: LEONOR Azithromycin (Zithromax) 500 mg in 255 mls @ 127.5 mls/hr IV NOW ONE Stop: 02/18/25 04:46 Last Infusion: 02/18/25 06:17 Dose: Infused Documented By: Admin: 02/18/25 04:17 Dose: 127.5 mls/hr Documented By: DELFINA Sodium Chloride (Nss) 500 mls @ 125 mls/hr IV .Q4H JESSA Stop: 02/18/25 06:59 Last Infusion: 02/18/25 06:09 Dose: Infused Documented By: Admin: 02/18/25 02:55 Dose: 125 mls/hr Documented By: LEONOR Ioversol (Optiray 320 100ml) 93 ml IV ONCE ONE Stop: 02/18/25 03:42 Last Admin: 02/18/25 03:41 Dose: 93 ml Documented By: SAADIA Ipratropium [place] (Ipratropium [place] Neb Soln 0.02% 0.5mg/2.5ml Vial) 0.5 mg INH NOW STA Stop: 02/18/25 05:15 Last Admin: 02/18/25 05:25 Dose: 0.5 mg Documented By: DELFINA Ketorolac Tromethamine (Ketorolac Tromethamine 15 Mg/Ml Vial) 10 mg IV NOW STA Stop: 02/18/25 04:57 Last Admin: 02/18/25 05:07 Dose: 10 mg Documented By: BAIRON Levalbuterol HCl (Levalbuterol 1.25 Mg/3 Ml Neb) 1.25 mg NEB NOW STA Stop: 02/18/25 05:15 Last Admin: 02/18/25 05:25 Dose: 1.25 mg Documented By: DELFINA Methylprednisolone (Methylprednisolone 125 Mg/2 Ml Vial) 40 mg IV ONE STA Stop: 02/18/25 05:17 Last Admin: 02/18/25 05:25 Dose: 40 mg Documented By: DELFINA Metoprolol Succinate (Metoprolol Succ 25mg Ext Rel Tab) 25 mg PO NOW STA Stop: 02/18/25 04:31 Last Admin: 02/18/25 05:07 Dose: 25 mg Documented By: BAIRON Ondansetron HCl (Ondansetron Inj 2 Mg/Ml 2 Ml Vial) 4 mg IV NOW STA Stop: 02/18/25 01:06 Last Admin: 02/18/25 01:11 Dose: 4 mg Documented By: LEONOR Imaging Data Radiologist's Impression: Chest CT 02/18/25 02:47 EXAM: CT chest diagnostic w con CLINICAL HISTORY: eval for penumonia TECHNIQUE: Contiguous axial images were obtained from the neck base through the upper abdomen following intravenous administration of contrast material. If IV contrast material had not been administered, the likelihood of detecting abnormalities relevant to the patient's condition would have been substantially decreased. In addition, sagittal and coronal reconstructions were performed. The CT scan was performed according to ALARA (as low as reasonably achievable) principles. COMPARISON: None. FINDINGS: A few atelectatic bands are noted involving the bilateral lung bases. The lungs are clear, with no focal areas of consolidation. No pulmonary nodules are seen. The central airways are patent. There are no pleural effusions. No pneumothorax is seen. No axillary, hilar, or mediastinal adenopathy is identified. The visualized thyroid is unremarkable. The heart, aorta, and pulmonary arteries are of normal size and configuration. No pericardial effusion is identified. Imaged portions of the upper abdomen show cholelithiasis. No aggressive appearing osseous lesions are identified. IMPRESSION: A few atelectatic bands are noted involving the bilateral lung bases. No obvious consolidation is seen. Electronically signed by Gerardo Abdul 02-18-2025 04:18 AM Discharge Plan Visit Data Chief Complaint: Fever Stated Complaint: FEVER, VOMIT ED Provider: Virginia Rodriguez Discharge Problem: SIRS (systemic inflammatory response syndrome), Bronchitis, Chronic obstructive pulmonary disease with (acute) exacerbation Patient Disposition: Admitted As Inpatient Condition: Serious Discharge Instructions Interventions: ED Discharge Assessment Last Done: 02/18/25 08:11
[2025-02-18] MEDS: IPRATROPIUM BROMIDE NEB SOLN 0.02% 0.5MG/2.5ML VIAL INH SCH (06:56)
[2025-02-18] MEDS: LEVALBUTEROL 1.25 MG/3 ML NEB NEB SCH (06:56)
[2025-02-18] MEDS: FERROUS SULFATE 325 MG TAB PO SCH (11:02)
[2025-02-18] MEDS: ROSUVASTATIN CALCIUM 10 MG TAB PO SCH (11:02)
[2025-02-18] MEDS: METOPROLOL SUCC 25MG EXT REL TAB PO SCH (11:02)
--- NOTE | 2025-02-18 11:56 | Communication Note ---
Date of Service: February 18, 2025 Patient was seen and examined at bedside. 79 yo M w/ PMH of hypertension, hyperlipidemia, aortic root enlargement/ascending aortic aneurysm, COPD, chronic anemia (baseline hemoglobin 12-13), BPH, ongoing tobacco abuse presents w/ not feeling well for <1d, cough w/ increased sob and wheezing more than usual for the same time. Pt denies aspiration, chest pain, sick contacts. 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 Of note, he had recent OP prostate biopsy for rising PSA and prostatic nodule few days ago by [facility] urologist. Painless hematuria postprocedure which he was told to expect as per patient. Postop Cipro course completed. He is being managed for the following: Likely complicated bronchitis vs developing CAP Sepsis POA: temp, HR, RR elevated at presentation. Lactate wnl COPD exacerbation Presents w/ cough, sob, wheeze. See above. Was noted to have very high fever at ED Ceftriaxone and azithromycin administered at the ER for sepsis. c/w rocephin, zithro 02/18, c/w nebs and steroid Pulmonology consult if without improvement Cough improving, wheeze improving on exam Pt able to tolerate diet, denies further N, V. Reports feeling better. Other chronic medical conditions: Continue with/resume home meds as when able. hypertension, BP under control. hyperlipidemia,on statin Rx aortic root enlargement/ascending aortic aneurysm, patient [place] [facility] [place] chronic anemia, hemoglobin at baseline BPH, prostatic nodule status post recent biopsy, patient with painless hematuria Ongoing tobacco abuse: Nicotine patch as needed DVT prophylaxis. SCDs Re: Hematuria Full code Patient's Ms. Josiah Harrington, contact #[phone]. Text document was generated using amazingtunes voice recognition software. It may contain grammatical or spelling errors. Kindly contact undersigned for clarification of any documentation item in question. For detailed information on the patient, refer to today's H&P note.
[2025-02-18 14:35] LABS: A calco-baum cmplx NotReported Not Detected (NotDetected); Bact fragilis Not Reported Not Detected (NotDetected); Blood Culture Id Panel See PCR Comment (NotDetected); C auris Not Reported Not Detected (NotDetected); CTX-M Resistant Gene Not Detected (NotDetected); Calbicans Not Reported Not Detected (NotDetected); Candida glabrata Not Reported Not Detected (NotDetected); Candida krusei Not Reported Not Detected (NotDetected); Cneoformans/gatti Not Reported Not Detected (NotDetected); Cparapsilosis Not Reported Not Detected (NotDetected); Ctropicalis Not Reported Not Detected (NotDetected); E cloacae compx Not Reported Not Detected (NotDetected); Efaecalis Not Reported Not Detected (NotDetected); Efaecium Not Reported Not Detected (NotDetected); Enterobacterales DETECTED (NotDetected); Enterobacterales Not Reported DETECTED (NotDetected); Escherichia coli Not Reported DETECTED (NotDetected); H influenzae Not Reported Not Detected (NotDetected); IMP Resistant Gene Not Detected (NotDetected); K aerogenes Not Reported Not Detected (NotDetected); KPC Resistant Gene Not Detected (NotDetected); Koxytoca Not Reported Not Detected (NotDetected); Kpneumoniae grp Not Reported Not Detected (NotDetected); Lmonocyt Not Reported Not Detected (NotDetected); N meningitidis Not Reported Not Detected (NotDetected); NDM Resistant Gene Not Detected (NotDetected); OXA 48 Like Resistant Gene Not Detected (NotDetected); P aeruginosa Not Reported Not Detected (NotDetected); Proteus spp Not Reported Not Detected (NotDetected); Salmonella spp Not Reported Not Detected (NotDetected); Staph lugdunensis Not Reported Not Detected (NotDetected); Staph spp. Not Reported Not Detected (NotDetected); Staphaureus Not Reported Not Detected (NotDetected); Staphepi Not Reported Not Detected (NotDetected); Stenmaltophilia Not Reported Not Detected (NotDetected); Strep agal(GrpB) Not Reported Not Detected (NotDetected); Strep pneum Not Reported Not Detected (NotDetected); Strep pyog (GrpA) Not Reported Not Detected (NotDetected); Strep spp Not Reported Not Detected (NotDetected); VIM Resistant Gene Not Detected (NotDetected); mcr-1 Colistin Resistant Gene Not Detected (NotDetected)
[2025-02-18] MEDS: cefTRIAXone SODIUM 2,000 MG/50 ML BAG IV SCH (20:47)
[2025-02-19 06:16] LABS: Anion Gap 3.0 (3-11); Blood Urea Nitrogen 22.0 mg/dl (6-23); Calcium 9.1 mg/dl (8.6-10.3); Carbon Dioxide 25.0 mmol/L (21-32); Chloride 108.0 mmol/L (98-107); Creatinine Clr Calc Pharmacy 77.2 ml/min; Glucose 132.0 mg/dl (70-99(Fasting)); Potassium 4.2 mmol/L (3.5-5.1); Sodium 136.0 mmol/L (136-145)
[2025-02-19 06:25] LABS: Hematocrit (blood only) 33.5 % (42.0-52.0); Hemoglobin 10.7 g/dl (14.0-18.0); Immature Granulocytes # (auto) 0.06 K/uL (0.01-0.20); Immature Granulocytes % (auto) 0.5 %; Mean Corpuscular Hemoglobin 29.3 pg (25.0-34.0); Mean Corpuscular Volume 91.8 fL (80.0-100.0); Platelet Count 131 K/uL (130-400); RDW Standard Deviation 47.8 fL (36.4-46.3); Red Blood Count 3.65 M/uL (4.70-6.10); White Blood Count 11.46 K/ul (4.8-10.8)
[2025-02-19] MEDS: AZITHROMYCIN 250 MG TAB PO SCH (09:15)
[2025-02-19] MEDS: predniSONE 20 MG TAB PO SCH (09:15)
[2025-02-19] MEDS: ADVANCED PROBIOTIC 625 MG CAPSULE PO SCH (09:16)
--- NOTE | 2025-02-19 13:07 | Hospitalist Progress Note ---
Date of Service February 19, 2025 Assessment & Plan (1) Sepsis: Plan 79 yo M w/ PMH of hypertension, hyperlipidemia, aortic root enlargement/ascending aortic aneurysm, COPD, chronic anemia (baseline hemoglobin 12-13), BPH, ongoing tobacco abuse presents w/ not feeling well for <1d, cough w/ increased sob and wheezing more than usual for the same time. Pt denies aspiration, chest pain, sick contacts. 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 Of note, he had recent OP prostate biopsy for rising PSA and prostatic nodule few days ago by [facility] urologist. Painless hematuria postprocedure which he was told to expect as per patient. Postop Cipro course completed. He is being managed for the following: Likely complicated bronchitis vs less likely developing CAP Sepsis POA: iso bronchitis, temp, HR, RR elevated at presentation. Lactate wnl COPD exacerbation Presents w/ cough, sob, wheeze. See above. Was noted to have very high fever at ED Ceftriaxone and azithromycin administered at the ER for sepsis. c/w rocephin 02/18, zithro 02/18, c/w nebs and steroid Cough improving, No wheeze but decreased b/l bs on exam Pt able to tolerate diet, denies further N, V. Reports feeling better. 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 UCx w/ E coli Bl cx w/ GNR c/w rocephine 02/18, ID consult C/w probiotic Pt feels better, has been afebrile, WBC slightly elevated/stable. Other chronic medical conditions: Continue with/resume home meds as when able. hypertension, BP under control. resume home bp meds as able. hyperlipidemia,on statin Rx aortic root enlargement/ascending aortic aneurysm, [place] [facility] [place] chronic anemia, hemoglobin at baseline BPH, prostatic nodule status post recent biopsy, patient with painless hematuria Ongoing tobacco abuse: Nicotine patch as needed DVT prophylaxis. SCDs Re: Hematuria Full code Patient's Ms. Josiah Harrington, contact #[phone]. Text document was generated using [employer] voice recognition software. It may contain grammatical or spelling errors. Kindly contact undersigned for clarification of any documentation item in question. Admission and Anticipated Discharge Date Admission Date: February 18, 2025 Subjective Patient was seen and examined at bedside. Patient was lying in bed, on room air, NAD, resting comfortably. Patient reports improving cough, denies any shortness of breath, has been afebrile, reports feeling better. Patient is able to eat okay, has not moved bowel since presentation which he attributes to his usual habit. Physical Exam Physical Exam: GENERAL: NAD, on RA, AO x 3 SKIN: Pallor, warm HEENT: Pale palpebral conjunctivae, no ptosis, moist buccal mucosa, nasal cannula in place NECK : Supple, no tenderness CHEST : Decreased breath sounds, occasional expiratory wheezes, no tenderness HEART : RRR, no obvious murmurs ABDOMEN: No distention, nontender EXTREMITIES : No LE swelling/tenderness, palpable pulses, no other conspicuous deformities noted NEUROLOGIC : Coherent, no facial asymmetry, no other gross focality Results & Data Results & Data Vital Signs (Past 12 Hours) Vital Signs Temp Pulse Pulse Resp BP BP Pulse Ox 02/19/25 11:28 36.6 C 69 18 122/68 96 02/19/25 10:40 69 16 96 02/19/25 07:06 71 16 98 02/19/25 05:12 54 L 02/19/25 03:10 36.4 C L 62 14 99/58 L 97 O2 Del Method 02/19/25 11:28 Room Air 02/19/25 10:40 Room Air 02/19/25 07:06 Room Air 02/19/25 05:12 02/19/25 03:10 Room Air
--- NOTE | 2025-02-19 22:44 | Electrocardiogram Report ---
Test Reason : Blood Pressure : */* mmHG Vent. Rate : 105 BPM Atrial Rate : 105 BPM P-R Int : 200 ms QRS Dur : 86 ms QT Int : 328 ms P-R-T Axes : -11 -15 -17 degrees QTcB Int : 433 ms Sinus tachycardia Possible Inferior infarct , age undetermined Abnormal ECG When compared with ECG of 20-Jan-2013 03:33, No significant change Confirmed by Rl Vidales ([id number]) on 02/19/2025 10:44:20 PM Referred By: REFERRED SELF Confirmed By: Rl Vidales
[2025-02-20 06:23] LABS: Hematocrit (blood only) 37.3 % (42.0-52.0); Hemoglobin 12.1 g/dl (14.0-18.0); Mean Corpuscular Hemoglobin 29.7 pg (25.0-34.0); Mean Corpuscular Volume 91.4 fL (80.0-100.0); Platelet Count 167 K/uL (130-400); RDW Standard Deviation 46.9 fL (36.4-46.3); Red Blood Count 4.08 M/uL (4.70-6.10); White Blood Count 10.62 K/ul (4.8-10.8)
[2025-02-20 07:01] LABS: Anion Gap 9.0 (3-11); Blood Urea Nitrogen 19.0 mg/dl (6-23); Calcium 9.2 mg/dl (8.6-10.3); Carbon Dioxide 22.0 mmol/L (21-32); Chloride 109.0 mmol/L (98-107); Creatinine Clr Calc Pharmacy 72.2 ml/min; Glucose 103.0 mg/dl (70-99(Fasting)); Magnesium 2.3 mg/dl (1.7-2.4); Potassium 4.0 mmol/L (3.5-5.1); Sodium 140.0 mmol/L (136-145)
[2025-02-20] MEDS: POT PHOSPHATE MONOBASIC W/ SOD TAB PO SCH (10:38)
--- NOTE | 2025-02-20 11:49 | Hospitalist Progress Note ---
Date of Service February 20, 2025 Assessment & Plan (1) Sepsis: Plan 79 yo M w/ PMH of hypertension, hyperlipidemia, aortic root enlargement/ascending aortic aneurysm, COPD, chronic anemia (baseline hemoglobin 12-13), BPH, ongoing tobacco abuse presents w/ not feeling well for <1d, cough w/ increased sob and wheezing more than usual for the same time. Pt denies aspiration, chest pain, sick contacts. 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 Of note, he had recent OP prostate biopsy for rising PSA and prostatic nodule few days ago by [facility] urologist. Painless hematuria postprocedure which he was told to expect as per patient. Postop Cipro course completed. He is being managed for the following: Likely complicated bronchitis vs less likely developing CAP Sepsis POA: iso bronchitis, temp, HR, RR elevated at presentation. Lactate wnl COPD exacerbation Presents w/ cough, sob, wheeze. See above. Was noted to have very high fever at ED Ceftriaxone and azithromycin administered at the ER for sepsis. c/w rocephin 02/18, zithro 02/18, c/w nebs and steroid Cough improving, No wheeze but decreased b/l bs on exam Pt able to tolerate diet, denies further N, V. Reports feeling better. 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 UCx w/ E coli Bl cx w/ E coli c/w rocephine 02/18, ID consult C/w probiotic Pt feels better, has been afebrile, WBC slightly downtreded to nl. Other chronic medical conditions: Continue with/resume home meds as when able. hypertension, BP under control. c/w home bp meds as able. hyperlipidemia,on statin Rx aortic root enlargement/ascending aortic aneurysm, patient follows with [facility] cardiology chronic anemia, hemoglobin at baseline BPH, prostatic nodule status post recent biopsy, patient with painless hematuria Ongoing tobacco abuse: Nicotine patch as needed DVT prophylaxis. SCDs Re: Hematuria Full code Patient's Ms. Josiah Harrington, contact #[phone]. Text document was generated using [employer] voice recognition software. It may contain grammatical or spelling errors. Kindly contact undersigned for clarification of any documentation item in question. Admission and Anticipated Discharge Date Admission Date: February 18, 2025 Subjective Patient was seen and examined at bedside. Patient was sitting up in bed, on room air, NAD, resting comfortably. Patient reports no cough, denies any shortness of breath, has been afebrile, reports feeling better. Patient is able to eat okay, denies other ROS Physical Exam Physical Exam: GENERAL: NAD, on RA, AO x 3 SKIN: Pallor, warm HEENT: Pale palpebral conjunctivae, no ptosis, moist buccal mucosa, nasal cannula in place NECK : Supple, no tenderness CHEST : Decreased breath sounds, occasional expiratory wheezes, no tenderness HEART : RRR, no obvious murmurs ABDOMEN: No distention, nontender EXTREMITIES : No LE swelling/tenderness, palpable pulses, no other conspicuous deformities noted NEUROLOGIC : Coherent, no facial asymmetry, no other gross focality Results & Data Results & Data Vital Signs (Past 12 Hours) Vital Signs Temp Pulse Pulse Resp BP Pulse Ox O2 Del Method 02/20/25 11:20 153/85 H 02/20/25 11:15 36.6 C 70 16 143/104 H 96 Room Air 02/20/25 08:15 63 02/20/25 08:03 36.3 C L 30 L 16 146/82 H Room Air 02/20/25 07:29 57 L 18 97 Room Air 02/20/25 03:05 36.6 C 68 18 151/88 H 97 Room Air
[2025-02-20] MEDS ORDERED: ALBUT/IPRATROP 3MG/0.5MG NEB 3 ML VIAL NEB PRN (22:57)
[2025-02-21 06:08] LABS: Hematocrit (blood only) 36.4 % (42.0-52.0); Hemoglobin 11.9 g/dl (14.0-18.0); Mean Corpuscular Hemoglobin 29.5 pg (25.0-34.0); Mean Corpuscular Volume 90.3 fL (80.0-100.0); Platelet Count 173 K/uL (130-400); RDW Standard Deviation 45.8 fL (36.4-46.3); Red Blood Count 4.03 M/uL (4.70-6.10); White Blood Count 7.01 K/ul (4.8-10.8)
[2025-02-21 06:33] LABS: Anion Gap 7.0 (3-11); Blood Urea Nitrogen 18.0 mg/dl (6-23); Calcium 8.9 mg/dl (8.6-10.3); Carbon Dioxide 24.0 mmol/L (21-32); Chloride 109.0 mmol/L (98-107); Creatinine Clr Calc Pharmacy 78.0 ml/min; Glucose 98.0 mg/dl (70-99(Fasting)); Potassium 3.8 mmol/L (3.5-5.1); Sodium 140.0 mmol/L (136-145)
[2025-02-21 07:40] VITALS: RESP 16; TEMP 97.9
[2025-02-21] MEDS: ACETAMINOPHEN 325 MG TAB PO PRN (10:30)
[2025-02-21 12:00] VITALS: O2SAT 97
--- NOTE | 2025-02-21 13:50 | Infectious Disease Consult ---
Date of Service February 21, 2025 Telehealth Information I performed this visit using a real-time telehealth connection between my location and the patients location ([facility]). After connecting through interactive tele-video, patient was identified by name and date of and/or wristband check.Patient (or authorized healthcare distribution sales representative) was informed that this was a telemedicine visit and it was being conducted confidentially over secure lines. My office door was closed and no one else was present in the room with me.Patient (or authorized healthcare distribution sales representative) provided consent to proceed with the visit, expressed an understanding of privacy and security of the telemedicine visit, and gave permission to have a hospital distribution sales representative in the room in order to assist with the visit and to conduct portions of the visit, as needed. I informed the patient (or authorized healthcare distribution sales representative) that I reviewed their record and presented the opportunity for them to ask any questions regarding the visit today. The patient agreed to participate. Assessment & Plan (1) Bacteremia: Plan Continue ceftriaxone 2g q24h. Once stable/ready for discharge, the patient can be switched to PO Bactrim. I recommend to consult Urology in order to determine if the patient has prostatitis or a prostate abscess. This will help us determine the duration of ABX. All orders are deferred to the primary/requesting service. All dosing is deferred to [facility] pharmacy (I do not have an ID pharmacist available at this time). Recommendations were communicated to and/or discussed with the primary/requesting service. These recommendations are not final. For subsequent recommendations, use the on-call schedule to find out which ID provider is covering your facility. History of Present Illness History of Present Illness The patient was admitted for fever (in the context of a recent prostate biopsy). Blood and urine cultures grew Ecoli. The patient reports feeling better. Allergies Allergy/AdvReac Type Severity Reaction Status Date / Time No Known Allergies Allergy Verified 02/18/25 01:37 Home Medications Medication Instructions Recorded Confirmed Type amlodipine 2.5 mg tablet 2.5 mg PO QAM 10/16/23 02/18/25 History ibuprofen 200 mg tablet 200 mg PO BID PRN Pain 10/16/23 02/18/25 History lisinopril 20 mg tablet 20 mg PO QAM 10/16/23 02/18/25 History metoprolol succinate 25 mg capsule 25 mg PO QAM 10/16/23 02/18/25 History sprinkle, ext. release 24 hr rosuvastatin 10 mg tablet 10 mg PO QAM 10/16/23 02/18/25 History sildenafil (pulm.hypertension) 20 20 mg PO UD PRN Sexual Activity 10/16/23 02/18/25 History mg tablet ciprofloxacin HCl 500 mg tablet 500 mg PO BID #6 tabs 01/19/25 02/18/25 Rx (Cipro) ferrous sulfate 325 mg (65 mg 325 mg PO DAILY 02/18/25 02/18/25 History iron) tablet Patient History Medical History Osteoarthritis Hyperlipidemia Hypertension AAA (abdominal aortic aneurysm) Hx of colonic polyps Surgical History History of cataract surgery S/P right knee arthroscopy H/O submucous nasal surgery History of colonoscopy History of tonsillectomy Family History Other No family history of adverse response to anesthesia Social History Smoking Status: Current every day smoker Tobacco Type: Cigarettes Cigarettes Per Day: 5; Second Hand Exposure: No; Do You Dip or Chew Tobacco: No; Tobacco Cessation Education Requested by Patient: No Hx Alcohol Use: Yes Alcohol type: wine and hard liquor Hx Substance Use: No Preferred Language: Mongolian Communication Ability: Effective Pop Singer Required: No Beliefs That Will Affect Care: None Current Living Situation: Spouse Other Information That Helps Us Care for You: No Feels Safe at Home: Yes Safety Concerns: Feels Safe At This Time Assistive Devices: None Review of Systems As reviewed in HPI; a complete ROS was otherwise negative Physical Exam Vitals: see EMR Exam limited due to constraints of telemedicine Gen/Constitutional: appears at stated age, NAD, nontoxic Head: AT, NC Eyes: sclera anicteric, no conjunctival injection ENT: MMM, trachea midline Card: appears to be well-perfused Resp: not tachypneic, nml effort, symmetric chest rise, no accessory muscle use Derm: no visible diaphoresis, no visible rash, no visible jaundice Results & Data Vital Signs (Past 12 Hours) Vital Signs Temp Pulse Pulse Resp BP Pulse Ox O2 Del Method 02/21/25 12:00 36.6 C 61 16 150/89 H 97 Room Air 02/21/25 10:59 36.6 C 68 16 148/88 H 95 Room Air 02/21/25 07:40 36.6 C 64 16 161/80 H 97 Room Air 02/21/25 07:30 60 02/21/25 03:47 36.2 C L 69 22 151/84 H 95 Room Air Laboratory Results SEE EMR Diagnostic Findings [facility] [address] [place] [address] / Director: Rosi Kahn M.D. Clinical Laboratory Report Name: PIERCE TINSLEY Acct: [id number] Status: ADM IN : 1945 [facility] Date: 02/18/25 Age: 79 Sex: M Dis Date: Loc: [address] Rm/Bed: [place] Spec: [id number] Collected: 02/18/25 Received: 02/18/[address]: Bianka Bender MD Source: Urine,Clean Catch OV Order: Ordered: Urine Culture Procedure Result Verified Site Urine Culture Final 02/20/25 Organism 1 Escherichia coli [place] Count 40,000 CFU/ml Sens Sensitivities to Follow E coli RX M.I.C. --- --------- Amikacin S <=16 Amox/Clav S <=8/4 Ampicillin S <=8 Amp/Sul S <=4/2 Cefazolin S <=2 Cefepime S <=2 Cefotaxime S <=2 Cefoxitin S <=8 Ceftriaxone S <=1 Cefuroxime S <=4 Ciprofloxacin R >2 Ertapenem S <=0.5 Gentamicin S <=2 Levofloxacin R >4 Meropenem S <=1 Nitrofurantoin S <=32 Tobramycin S <=2 Trimeth/Sulfa S <=0.5/9.5 Pip/Tazo S <=8 S = SENSITIVE I = INTERMEDIATE R = RESISTANT Name: ALVINAPIEREC Avila : 1945 PAGE 1 Printed: 02/21/25 [id number] END OF REPORT [address], [place] [address] / Director: Rosi Kahn M.D. Clinical Laboratory Report Name: ALVINAPIERCE Avila Acct: [id number] Status: ADM IN : 1945 [facility] Date: 02/18/25 Age: 79 Sex: M Dis Date: Loc: [address] [facility]: [facility] Spec: [id number] Collected: 02/18/25 Received: 02/18/[address]: Bianka Bender MD Source: Blood OV Order: Ordered: Blood Culture Comments: Blood culture drawn venously from Left Hand. Procedure Result Verified Site Blood Culture Aerobic Final 02/20/25 Organism 1 Escherichia coli Sens Sensitivities to Follow Blood Culture PCR Panel If viewing in EMR, results available under LAB Serology tab. Phoned positive Blood Culture Gram Stain report to Susan Matos on 02/18/25 at 1440 [place] [id number]. [place] [id number]. E coli RX M.I.C. --- --------- Amikacin S <=16 Amox/Clav S <=8/4 Ampicillin S <=8 Amp/Sul S <=4/2 Cefazolin S <=2 Cefepime S <=2 Cefotaxime S <=2 Cefoxitin S <=8 Ceftriaxone S <=1 Cefuroxime S <=4 Ciprofloxacin R >2 Ertapenem S <=0.5 Gentamicin S <=2 Levofloxacin R >4 Meropenem S <=1 Tobramycin S <=2 Trimeth/Sulfa S <=0.5/9.5 Pip/Tazo S <=8 S = SENSITIVE I = INTERMEDIATE R = RESISTANT Blood Culture Anaerobic Final 02/20/25-3617 Organism 1 Escherichia coli Sens No Sensitivities to Follow Name: PIERCE TINSLEY : 1945 PAGE 1 Printed: 02/21/25 [id number] END OF REPORT
--- NOTE | 2025-02-21 15:00 | Discharge Summary ---
Date of Service February 21, 2025 Admission HPI Per Admitting Provider History obtained from patient, family, and records. Medical history significant for hypertension, hyperlipidemia, aortic root enlargement/ascending aortic aneurysm, COPD, chronic anemia (baseline hemoglobin 12-13), BPH, ongoing tobacco abuse. Patient had outpatient prostate biopsy for rising PSA and prostatic nodule few days ago by [facility] urologist. Painless hematuria postprocedure which he was told to expect as per patient. Postop Cipro course completed. Patient not feeling well yesterday before he and went out for dinner. Junky cough symptoms with increased SOB and wheezing more than usual. No chest pain. Denies aspiration. Not sure about sick contacts. Patient felt sick to his stomach. No actual abdominal pain. Subsequent bilious emesis. Patient brought to ER for evaluation. Ceftriaxone and azithromycin administered at the ER for sepsis. Medical History as above Surgical History : Cataract surgery, urologic procedure, tonsillectomy/adenoidectomy, sinus surgery Family History : COPD Personal/Social history : 1/4 pack daily, occasional EtOH intake, retired company [employer] Admission Exam Per Admitting Provider GENERAL: Slightly uncomfortable, minimal respiratory distress SKIN: Pallor, warm HEENT: Pale palpebral conjunctivae, no ptosis, dry buccal mucosa, nasal cannula in place NECK : Supple, no tenderness CHEST : Decreased breath sounds, occasional expiratory wheezes, no tenderness HEART : Tachycardic, no obvious murmurs ABDOMEN: Some distention, nontender EXTREMITIES : No LE swelling/tenderness, palpable pulses, no other conspicuous deformities noted NEUROLOGIC : Coherent, no facial asymmetry, no other gross focality Principal Diagnosis Bacteremia Complicated UTI Discharge Exam GENERAL: NAD, on RA, AO x 3 SKIN: Pallor, warm HEENT: Pale palpebral conjunctivae, no ptosis, moist buccal mucosa, nasal cannula in place NECK : Supple, no tenderness CHEST : Decreased breath sounds, occasional expiratory wheezes, no tenderness HEART : RRR, no obvious murmurs ABDOMEN: No distention, nontender EXTREMITIES : No LE swelling/tenderness, palpable pulses, no other conspicuous deformities noted NEUROLOGIC : Coherent, no facial asymmetry, no other gross focality Discharge Data Allergies Allergy/AdvReac Type Severity Reaction Status Date / Time No Known Allergies Allergy Verified 02/18/25 01:37 Consultations 02/18/25 04:26 ED Decision to Admit Stat 02/19/25 09:02 Consult Infectious Diseases Routine Ordered Studies 02/18/25 02:47 CT chest diagnostic w con Stat Hospital Course (1) Sepsis: Plan 79 yo M w/ PMH of hypertension, hyperlipidemia, aortic root enlargement/ascending aortic aneurysm, COPD, chronic anemia (baseline hemoglobin 12-13), BPH, ongoing tobacco abuse presents w/ not feeling well for <1d, cough w/ increased sob and wheezing more than usual for the same time. Pt denies aspiration, chest pain, sick contacts. 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 Of note, he had recent OP prostate biopsy for rising PSA and prostatic nodule few days ago by [facility] urologist. Painless hematuria postprocedure which he was told to expect as per patient. Postop Cipro course completed. He is being managed for the following: Likely complicated bronchitis vs less likely developing CAP COPD exacerbation Presents w/ cough, sob, wheeze. See above. Was noted to have very high fever at ED Ceftriaxone and azithromycin administered at the ER for sepsis. c/w rocephin 02/18, zithro 02/18, c/w nebs and steroid Cough improving, No wheeze but decreased b/l bs on exam Pt able to tolerate diet, denies further N, V. Reports feeling better. Bacteremia Complicated UTI Sepsis POA due to Escherichia coli [E. coli], temp, HR, RR elevated at presentation. 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 UCx w/ E coli Bl cx w/ E coli c/w rocephine 02/18, ID evaled, recommended uro eval, d/w uro, recommended 14 day antibiotic treatment. C/w probiotic Pt feels better, has been afebrile, WBC wnl Pt stated he has f/u w/ uro in next 2-3days, advised to keep up the appointment. Other chronic medical conditions: Continue with/resume home meds as when able. hypertension, BP under control. c/w home bp meds as able. hyperlipidemia,on statin Rx aortic root enlargement/ascending aortic aneurysm, patient [place] [facility] [place] chronic anemia, hemoglobin at baseline BPH, prostatic nodule status post recent biopsy, patient with painless hematuria Ongoing tobacco abuse: Nicotine patch as needed DVT prophylaxis. SCDs Re: Hematuria Full code Patient's Ms. Josiah Harrington, contact #[phone]. Patient is being discharged home with following instructions at the point of discharge: Follow-up with your primary care physician within a week time and likely you will need labs CBC/CMP/magnesium/phosphorus. You were diagnosed with complicated UTI/concern for prostate infection and also diagnosed with bladder infection, infection disease DrCici evaluated you, you are being discharged on antibiotic for 14 more days. Your urology doctor is also aware of your infection and is aware of your treatment with antibiotic. Follow-up with urology in a week time upon discharge. While on antibiotic, maintain adequate hydration. Take your medications as prescribed. Please make sure that you are able to get your medications today by calling your pharmacy before you leave the hospital so that your treatment continuity is not broken. Text document was generated using [employer] voice recognition software. It may contain grammatical or spelling errors. Kindly contact undersigned for clarification of any documentation item in question. Home Health Attestation I certify that this patient is under my care and that I, or a physicians undertaker assistant working with me, had a face to-face encounter that meets the home health [id number] encounter requirements with this patient. The encounter with the patient was in whole, or in part, for the following medical condition, which is the primary reason for home health care (list medical condition): I certify that, based on my findings, the following services are medically necessary home health services: My clinical findings support the need for the above services because: Further, I certify that my clinical findings support that this patient is homebound (i.e. absences from home require considerable and taxing effort and are for medical reasons or latter day services or infrequently or of short duration when for other reasons) because: Certification for Home Health Services: Based on the above findings, I certify that this patient is confined to the home and needs intermittent chcf care, physical therapy and/or speech therapy or continues to need occupational therapy. The patient is under my care, and I have initiated the establishment of the plan of care. This patient will be followed by a physician who will periodically review the plan of care. Total Time Total Time Spent Total Time Spent (In Minutes): 45 Discharge Plan Discharge Items Patient Disposition: Home - Self-Care Reason For Visit: SEPSIS, COPD EXACERBATION Discharge Diagnosis: Bacteremia Complicated UTI Condition on Discharge: Serious Activity: Resume your previous activity Non-emergency contact: Primary Care Provider Call non-emergency contact if: you have any medication questions and your symptoms worsen Follow-up/Referrals: Guru French MD [Primary Care Provider] - (Date & Time 02/24/2025 11:00 AM Provider: Guru French III, MD [facility]) Diet: Heart Healthy Addtl Attending Provider Instructions: Follow-up with your primary care physician within a week time and likely you will need labs CBC/CMP/magnesium/phosphorus. You were diagnosed with complicated UTI/concern for prostate infection and also diagnosed with bladder infection, infection disease DrCici evaluated you, you are being discharged on antibiotic for 14 more days. Your urology doctor is also aware of your infection and is aware of your treatment with antibiotic. Follow-up with urology in a week time upon discharge. While on antibiotic, maintain adequate hydration. Take your medications as prescribed. Please make sure that you are able to get your medications today by calling your pharmacy before you leave the hospital so that your treatment continuity is not broken. Pending Studies at Discharge: No Stand-Alone Forms: My [facility], Smoking Cessation Medications and DC Order Prescriptions: New azithromycin 250 mg Tablet 250 mg PO QAM 1 Days Qty: 1 0RF sulfamethoxazole-trimethoprim [Bactrim DS] 800-160 mg Tablet 1 tab PO BID 14 Days Qty: 28 0RF Advanced Probiotic 625 mg (10 billion cell) Capsule 1 cap PO DAILY 14 Days Qty: 14 0RF prednisone 20 mg Tablet 40 mg PO DAILY 2 Days Qty: 4 0RF Continued ferrous sulfate 325 mg (65 mg iron) Tablet 325 mg PO DAILY amlodipine 2.5 mg Tablet 2.5 mg PO QAM rosuvastatin 10 mg Tablet 10 mg PO QAM lisinopril 20 mg Tablet 20 mg PO QAM sildenafil (pulm.hypertension) 20 mg Tablet 20 mg PO UD PRN (Reason: Sexual Activity) metoprolol succinate 25 mg Capsule,Sprinkle,Er 24hr 25 mg PO QAM ibuprofen 200 mg Tablet 200 mg PO BID PRN (Reason: Pain) Discontinued ciprofloxacin HCl [Cipro] 500 mg tablet 500 mg PO BID Qty: 6 0RF Rx Instructions: Start the day prior to procedure Discharge Orders: Discharge Order (Routine); Ordered 02/21/25 Ordered By: Pablo Downey Admission Data Admit Date/Time: 02/18/25 04:37 Attending Provider: Pablo Downey Admit Provider: Pardeep Pereira Primary Care Provider: Guru French Other Providers: Pardeep Pereira; Jacky Diop; Sly Johnson; Ryan Baldwin I.; Javan Ansari II; Felicia Zhu; David Child; Young Torres; Moe Haque
[2025-02-21 16:47] VITALS: BP 99/58; PULSE 78
[2025-02-21] MEDS ORDERED: SULFAMETHOXAZOLE/TRIMETHOPRIM DS 800/160MG TAB PO SCH (21:00)
== END 2025-02-21 16:47 | disposition home or self-care (01) | DRG 872 ==
LOC: ED 00:16 → 2N 04:37